=== PATIENT | male | born 1970 | race Two or more races ===

== ENCOUNTER 2023-09-21 23:34 | Emergency (ER) | payer SELFPAY ==
[~2023-09-21] VITALS: Ht 170.2 cm; Wt 100.0 kg
[2023-09-22 00:32] LABS: Basophils # (auto) 0 10 ^3/uL (0-0.2); Basophils % (auto) 0.2 % (0.0-2.0); Eosinophils # (auto) 0 10 ^3/uL (0-0.8); Eosinophils % (auto) 0.3 % (0.0-7.0); Hematocrit 49.9 % (41.0-53.0); Hemoglobin 16.7 g/dL (13.5-17.5); Lymphocytes # (auto) 1.9 10 ^3/uL (0.4-5.4); Mean Corpuscular Hemoglobin 30.2 pg (28.0-32.0); Mean Corpuscular Hgb Conc. 33.4 g/dL (32.0-36.0); Mean Corpuscular Volume 90.3 fL (80.0-100.0); Monocytes # (auto) 0.8 10 ^3/uL (0-1.3); Neutrophils # (auto) 10.6 10 ^3/uL (1.6-8.6); Neutrophils % (auto) 79.5 % (37.0-80.0); Nucleated Red Blood Cells % 0.1 %; Red Blood Cells 5.53 10^6/uL (4.5-5.90); White Blood Cell 13.3 10^3/uL (4.4-10.8)
[2023-09-22 00:44] LABS: Urine Bacteria NONE SEEN /hpf (None Seen); Urine Blood Negative /uL (Negative); Urine Clarity Clear (Clear); Urine Color Yellow (Yellow); Urine Mucus FEW (None Seen); Urine Protein, UAD TRACE (Negative); Urine Specific Gravity 1.029 (1.001-1.035); Urine Urobilinogen Normal (Negative); Urine WBC 1 /hpf (0 - 3)
[2023-09-22 00:46] LABS: Alanine Aminotransferase 38 U/L (7-40); Albumin 4.9 g/dL (3.2-4.8); Alkaline Phosphatase 38 U/L (46-116); Anion Gap 9 (5-15); Aspartate Aminotransferase 18 U/L (13-40); BUN/Creatinine Ratio 13.1 (10.0-20.0); Blood Urea Nitrogen 11 mg/dL (9-23); Calcium 9.8 mg/dL (8.7-10.4); Carbon Dioxide 24 mmol/L (20-30); Chloride 104 mmol/L (98-107); Glucose 112 mg/dL (74-106); Lipase 35 U/L (12-53); Potassium 3.9 mmol/L (3.5-5.1); Sodium 137 mmol/L (136-145); Total Protein 7.7 g/dL (5.7-8.2)
[2023-09-22] MEDS: MAALOX PLUS or MAALOX 30 ML PO ONE (03:15)
[2023-09-22] MEDS ORDERED: POLY1POW50 PO (03:22)
[2023-09-22] MEDS ORDERED: ZOFR4T PO (03:22)
[2023-09-22] MEDS: ONDANSETRON ODT 4 MG TAB PO ONE (03:56)
[2023-09-22] MEDS: DONNATAL 5ml ORAL Elix (BELLADONNA ALK-PHENOBARB) PO ONE (04:08)
[2023-09-22] MEDS: LIDOCAINE VISCOUS 2% 15ML UD PO ONE (04:11)
[2023-09-22 04:23] VITALS: BP 146/99; PULSE 81; RESP 20; TEMP 97.8
[2023-09-22 04:28] VITALS: O2SAT 96
== END 2023-09-22 05:43 | disposition home or self-care (01) ==
LOC: ER 23:34
DX: R10.84 Generalized abdominal pain (principal); I10 Essential (primary) hypertension; Z79.899 Other long term (current) drug therapy
CPT/HCPCS: 36415; 74176; 80053; 81001; 83690; 84484; 85025; 99284; Q0162